=== PATIENT | male | born 1990 | race Caucasian/White ===

== ENCOUNTER 2018-04-11 08:37 | Emergency (ER) | payer BC ==
[2018-04-11] MEDS: ONDANSETRON (ODT) 4 MG TAB ODT (09:07)
[2018-04-11] MEDS: DIPHTH/TET/ACEL PERTUSS (ADULT) 0.5 ML VIAL IM* (09:07)
[2018-04-11] MEDS: HYDROCODONE/APAP (10/325) TAB PO (09:07)
[2018-04-11] MEDS: CEPHALEXIN 500 MG CAP PO (09:08)
== END 2018-04-11 09:51 | disposition home or self-care (01) ==
LOC: E/R 08:37
DX: S71.132A Puncture wound without foreign body, left thigh, initial encounter (principal); S70.12XA Contusion of left thigh, initial encounter; S70.312A Abrasion, left thigh, initial encounter; S40.811A Abrasion of right upper arm, initial encounter; S00.81XA Abrasion of other part of head, initial encounter; X58.XXXA Exposure to other specified factors, initial encounter; Y92.9 Unspecified place or not applicable; Z23 Encounter for immunization
CPT/HCPCS: 73550; 90471; 90715; 99284-25

== ENCOUNTER 2018-09-15 06:58 | Emergency (ER) | payer BC | END 2018-09-15 08:26 | disposition home or self-care (01) | LOC: FTE 06:58 | DX: H00.011 Hordeolum externum right upper eyelid (principal) | CPT/HCPCS: 99282 ==